=== PATIENT | male | born 1995 | race Caucasian/White ===

== ENCOUNTER 2019-12-05 18:28 | Emergency (ER) | payer OTHER ==
[2019-12-05 18:36] VITALS: BP 144/83; PULSE 80; TEMP 98; BMI 33.6
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
[2019-12-05] MEDS ORDERED: ACETAMINOPHEN 325 MG TABLET (FP) PO ONE (19:19)
[2019-12-05] MEDS ORDERED: ACETAMINOPHEN 325 MG TABLET (FP) ONE (19:21)
[2019-12-05] MEDS ORDERED: CYCLOBENZAPRINE HCL 10 MG TABLET (FP) PO ONE (21:36)
[2019-12-05] MEDS ORDERED: IBUPROFEN 600 MG TABLET (FP) PO ONE ×2 (21:36→21:39)
[2019-12-05] MEDS ORDERED: CYCLOBENZAPRINE HCL 10 MG TABLET (FP) ONE (21:39)
== END 2019-12-05 21:43 | disposition home or self-care (01) ==
LOC: JERFT 18:28
DX: S16.1XXA Strain of muscle, fascia and tendon at neck level, initial encounter (principal); M62.838 Other muscle spasm; V43.62XA Car passenger injured in collision with other type car in traffic accident, initial encounter; Y92.414 Local residential or business street as the place of occurrence of the external cause; Y93.89 Activity, other specified; Y99.8 Other external cause status
CPT/HCPCS: 72125-TC; 99281-25

== ENCOUNTER 2024-10-30 13:15 | Emergency (ER) | payer OTHER ==
[2024-10-30 13:28] VITALS: TEMP 98.2; BMI 35.6
[2024-10-30] MEDS ORDERED: ACETAMINOPHEN INJECTION 100 ML ONE (14:01)
[2024-10-30] MEDS ORDERED: ONDANSETRON 4 MG/2 ML VIAL ONE (14:01)
[2024-10-30] MEDS ORDERED: FAMOTIDINE 20 MG/50 ML IVPB 20 MG/50 ML MG IVPB ONE (14:02)
[2024-10-30] MEDS: LACTATED RINGERS SOLUTION 1,000 ML/1,000 ML INFUS.BAG IV ONE (14:20)
[2024-10-30] MEDS: ACETAMINOPHEN 1000 MG/100 ML BAG IVPB ONE (14:21)
[2024-10-30] MEDS: ONDANSETRON 4 MG/2 ML VIAL IVPUSH ONE (14:21)
[2024-10-30] MEDS: FAMOTIDINE 20 MG/50 ML IVPB 20 MG/50 ML MG IVPB ONE (14:21)
[2024-10-30 14:48] LABS: PH,URINE 5.5 (5.0-8.0); URINE BILIRUBIN NEGATIVE (NEGATIVE); URINE COLOR YELLOW; URINE GLUCOSE (UA) NEGATIVE (NEGATIVE); URINE KETONE TRACE (NEGATIVE); URINE LEUK ESTERASE NEGATIVE (NEGATIVE); URINE NITRITE NEGATIVE (NEGATIVE); URINE PROTEIN NEGATIVE (NEGATIVE); URINE UROBILINOGEN 0.2 mg/dL (0.2-1.0)
[2024-10-30 14:50] LABS: HEMATOCRIT 47.9 % (35.4-49); HEMOGLOBIN 15.8 GM/dL (11.7-16.9); MCH 28.1 pg (25.7-33.7); MCHC 33.1 g/dl (32.0-35.9); PLATELET COUNT 217 10^3/uL (134-434); RBC 5.63 M/mm3 (4.00-5.60); RDW 13.5 % (11.9-15.9); WHITE BLOOD COUNT 11.4 K/mm3 (4.0-10.0)
[2024-10-30 15:19] LABS: CALCIUM 9.3 mg/dL (8.5-10.1)
[2024-10-30 15:20] LABS: ALBUMIN 4.6 g/dl (3.4-5.0); BLOOD UREA NITROGEN 14.7 mg/dL (7-18)
[2024-10-30 15:24] LABS: BILIRUBIN,TOTAL 1.2 mg/dL (0.2-1)
[2024-10-30 15:25] LABS: TOT PROT 7.6 g/dl (6.4-8.2)
[2024-10-30 15:30] LABS: ANISOCYTOSIS 0; MACROCYTOSIS 0
[2024-10-30 15:35] LABS: POTASSIUM 4.5 mmol/L (3.5-5.1)
[2024-10-30] MEDS ORDERED: KETOROLAC TROMETHAMINE 30 MG/1 ML VIAL ONE (15:43)
[2024-10-30] MEDS ORDERED: METOCLOPRAMIDE HCL INJECTION 10 MG/2 ML VIAL ONE (15:44)
[2024-10-30 15:45] LABS: URINE APPEARANCE CLEAR
[2024-10-30] MEDS: METOCLOPRAMIDE HCL INJECTION 10 MG/2 ML VIAL IVPUSH ONE (15:58)
[2024-10-30] MEDS: SODIUM CHLORIDE 1,000 ML IV STA (15:58)
[2024-10-30] MEDS: KETOROLAC TROMETHAMINE 30 MG/1 ML VIAL IVPUSH ONE (15:58)
[2024-10-30 16:15] LABS: HIV INTERPRETATION NEGATIVE (NEGATIVE)
[2024-10-30 16:19] VITALS: BP 111/70; PULSE 78; RESP 16
== END 2024-10-30 16:41 | disposition home or self-care (01) ==
LOC: JER 13:15
PROC: 3E033GC Introduction of Other Therapeutic Substance into Peripheral Vein, Percutaneous Approach (ICD-10-PCS; principal; 2024-10-30)
PROC: 3E033NZ Introduction of Analgesics, Hypnotics, Sedatives into Peripheral Vein, Percutaneous Approach (ICD-10-PCS; 2024-10-30)
PROC: 3E0333Z Introduction of Anti-inflammatory into Peripheral Vein, Percutaneous Approach (ICD-10-PCS; 2024-10-30)
PROC: 3E033GC Introduction of Other Therapeutic Substance into Peripheral Vein, Percutaneous Approach (ICD-10-PCS; 2024-10-30)
PROC: 3E033GC Introduction of Other Therapeutic Substance into Peripheral Vein, Percutaneous Approach (ICD-10-PCS; 2024-10-30)
PROC: 3E0337Z Introduction of Electrolytic and Water Balance Substance into Peripheral Vein, Percutaneous Approach (ICD-10-PCS; 2024-10-30)
DX: R11.2 Nausea with vomiting, unspecified (principal); R19.7 Diarrhea, unspecified; B34.9 Viral infection, unspecified; R51.9 Headache, unspecified; R42 Dizziness and giddiness; R10.84 Generalized abdominal pain; Z20.822 Contact with and (suspected) exposure to COVID-19
CPT/HCPCS: 0241U-QW; 36415; 80053; 81003; 85025; 86803; 87389; 96361; 96365; 96375; 99284-25; J0131